=== PATIENT | female | born 1970 | race African-American/Black ===

== ENCOUNTER 2016-08-06 14:51 | Emergency (ER) | payer MEDICAID ==
[~2016-08-06] VITALS: Ht 160 cm; Wt 76.1 kg
[2016-08-06] MEDS ORDERED: ONDANSETRON 2MG/ML, 2ML IVPush ONE (15:30)
[2016-08-06] MEDS ORDERED: MORPHINE SULFATE 4 MG/ML, 1ML IVPush PRN (15:30)
[2016-08-06] MEDS ORDERED: SODIUM CHLORIDE FLUSH 10ML SYR IVF ONE (15:30)
[2016-08-06] MEDS ORDERED: MORPHINE SULFATE 4 MG/ML, 1ML ONE (15:35)
[2016-08-06] MEDS ORDERED: ONDANSETRON 2MG/ML, 2ML ONE (15:35)
[2016-08-06 15:56] LABS: HEMOGLOBIN 8.8 g/dL (11.7-16.4)
[2016-08-06 16:07] LABS: ASPARTATE AMINO TRANSFERASE 17 U/L (15-37); BLOOD UREA NITROGEN 10 mg/dL (7-18)
[2016-08-06 17:20] VITALS: BP 145/84
[2016-08-06] MEDS ORDERED: MAALOX/HYOSCYAMINE/LIDOCAINE 45 ML BOTTLE ONE (17:20)
[2016-08-06] MEDS ORDERED: MAALOX/HYOSCYAMINE/LIDOCAINE 45 ML BOTTLE PO ONE (17:30)
== END 2016-08-06 17:30 | disposition home or self-care (01) ==
LOC: ED 16:50
DX: K29.00 Acute gastritis without bleeding (principal); R10.11 Right upper quadrant pain
CPT/HCPCS: 36415; 76700; 80053; 81003; 83690; 85025; 96374; 96375; 99285; J2405

== ENCOUNTER 2016-12-24 08:16 | Emergency (ER) | payer MEDICAID, OTHER ==
[~2016-12-24] VITALS: Ht 157.5 cm; Wt 75.0 kg
[2016-12-24] MEDS ORDERED: SODIUM CHLORIDE 0.9% 1,000 ML IV ONE (09:32)
[2016-12-24] MEDS ORDERED: FAMOTIDINE 20 MG/2 ML ONE (09:45)
[2016-12-24] MEDS ORDERED: MORPHINE SULFATE 4 MG/ML, 1ML ONE (09:45)
[2016-12-24] MEDS ORDERED: ONDANSETRON 2MG/ML, 2ML ONE (09:45)
[2016-12-24] MEDS ORDERED: ONDANSETRON 2MG/ML, 2ML IVPush ONE (10:00)
[2016-12-24] MEDS ORDERED: FAMOTIDINE 20 MG/2 ML IVP ONE (10:00)
[2016-12-24] MEDS ORDERED: MORPHINE SULFATE 4 MG/ML, 1ML IVPush PRN (10:00)
[2016-12-24] MEDS ORDERED: SODIUM CHLORIDE 0.9% 1,000ML IVBOLUS ONE (10:00)
[2016-12-24 10:07] LABS: BLOOD UREA NITROGEN 13 mg/dL (7-18)
[2016-12-24 10:10] LABS: ASPARTATE AMINO TRANSFERASE 15 U/L (15-37)
[2016-12-24 10:16] LABS: HEMATOCRIT 28.6 % (34.6-47.8); HEMOGLOBIN 8.7 g/dL (11.7-16.4); WHITE BLOOD COUNT 5.5 x10^3/uL (3.4-10)
[2016-12-24 10:22] LABS: PATH.CAST-FLAG NOT PRESENT; SPERM-FLAG NOT PRESENT; SRC-FLAG NOT PRESENT; XTAL-FLAG NOT PRESENT; YLC-FLAG NOT PRESENT
[2016-12-24 10:31] LABS: DIFF TOTAL CELLS COUNTED 100 CELL DIFF
[2016-12-24 10:34] LABS: ANISOCYTOSIS 1+; MICROCYTOSIS 1+; VERIFY COUNTS? YES
[2016-12-24 10:36] LABS: POLYCHROMASIA 1+
[2016-12-24 11:05] VITALS: BP 122/82
== END 2016-12-24 11:07 | disposition home or self-care (01) ==
LOC: ED 10:55
DX: K29.00 Acute gastritis without bleeding (principal); N39.0 Urinary tract infection, site not specified; N30.90 Cystitis, unspecified without hematuria; D64.9 Anemia, unspecified
CPT/HCPCS: 36415; 76700; 80053; 81001; 83690; 84703; 85025; 87077; 87086; 96361; 96374; 96375; 99285; J2405; J7030; 87186; S0028